=== PATIENT | male | born 2005 | race African-American/Black ===

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

== ENCOUNTER 2025-01-10 18:54 | Emergency (ER) | payer SELFPAY ==
[2025-01-10] MEDS ORDERED: Ondansetron PF 4 MG/2 ML Vial ONE (19:18)
[2025-01-10 19:41] LABS: #Basophils 0.1 thou/uL (0.0-0.2); #Eosinophils 0.0 thou/uL (0.0-0.7); #Lymphocytes 1.5 thou/uL (1.20-3.40); #Monocytes 0.3 thou/uL (0.11-0.59); #Neutrophils 3.6 thou/uL (1.40-6.50); %Basophils 1.7 % (0.0-1.0); %Eosinophils 0.7 % (0.0-10.0); %Lymphocytes 26.5 % (28.0-48.0); %Monocytes 5.9 % (0.0-4.0); %Neutrophils 65.3 % (31.0-61.0); Hematocrit 38.9 % (42.0-52.0); Hemoglobin 13.9 g/dL (14.0-18.0); Mean Corpuscular Hemoglobin 30.0 pg (25.0-35.0); Mean Corpuscular Volume 84.2 fl (78.0-98.0); Platelet Count 187 10x3/uL (130-400); Red Blood Cell (RBC) Count 4.62 mill/uL (4.00-5.20); White Blood Cell (WBC) Count 5.5 10x3/uL (4.8-10.8)
[2025-01-10 19:45] LABS: ALT (SGPT) 27 U/L (Less than 45); AST (SGOT) 45 U/L (11-34); Albumin 5.3 g/dL (3.1-4.5); Alkaline Phosphatase 42 U/L (50-130); Anion Gap 17 mmol/L (10-20); BUN (Urea Nitrogen) 11 mg/dL (8.9-20.6); Bilirubin, Total 3.4 mg/dL (0.3-1.2); Calc. Creatinine Clearance 0 mL/min (70-130); Calcium 9.5 mg/dL (7.8-10.44); Carbon Dioxide 25 mmol/L (22-29); Chloride 101 mmol/L (98-107); Globulin 2.5 g/dL (2.4-3.5); Glucose 108 mg/dL (70-105); Potassium 3.2 mmol/L (3.5-5.1); Sodium 140 mmol/L (136-145)
== END 2025-01-10 20:05 | disposition short-term general hospital (02) ==
LOC: NAV ERS 18:54
DX: N44.00 Torsion of testis, unspecified (principal)
CPT/HCPCS: 80053; 85025; 96374; J2270; J2405; J7030